=== PATIENT | female | born 1970 | race Caucasian/White ===

== ENCOUNTER 2020-05-08 09:31 | Day surgery (SDC) | payer BC, SELFPAY ==
[2020-05-07 09:29] VITALS: BMI 24.1
--- NOTE | 2020-05-07 10:58 | HO.ANESPROP2 ---
Documented by User: Cande Del Rio 05/07/20 10:59 HPI - Anesthesia Eval Consult details Narrative: 50yo for colonoscopy: screening PMFSH Past Medical History Medical History Anxiety Hx MRSA infection Seasonal allergies Surgical History Surgical History History of carpal tunnel release History of laparotomy Hx of colonoscopy Hx of hysterectomy Hx of tubal ligation Social History Social History Smoking Status: Never smoker Second Hand Smoke Exposure: No Use of substances other than those prescribed or required for medical reasons: Yes Substance Use Frequency: Occasionally Advance Directives: No Advance Directives Information Provided: No Meds Allergies Allergy/AdvReac Type Severity Reaction Status Date / Time Sulfa (Sulfonamide Allergy Intermediate RASH/ITCHING, Verified 05/08/20 09:44 Antibiotics) hives [SULFA (SULFONAMIDE ANTIBIOTICS)] Home Medications Medication Instructions Recorded Confirmed Type clonazepam 1 tab PO BID PRN 05/05/20 05/05/20 History escitalopram oxalate 1 tab PO DAILY 05/05/20 05/05/20 History fluconazole 1 tab PO DAILY 05/05/20 05/05/20 History Exam Exam Date and Time: May 07, 2020 1058 Height,Weight and Vital Signs: Height 5 ft 5 in Weight 65.771 kg Assessment and Plan Assessment Anesthesia Assessment: Chart Reviewed Documented by User: Lizz Santos 05/08/20 10:19 PMFSH Past Medical History Medical History Anxiety Hx MRSA infection Seasonal allergies Surgical History Surgical History History of carpal tunnel release History of laparotomy Hx of colonoscopy Hx of hysterectomy Hx of tubal ligation Social History Social History Smoking Status: Never smoker Second Hand Smoke Exposure: No Use of substances other than those prescribed or required for medical reasons: Yes Substance Use Frequency: Occasionally Advance Directives: No Advance Directives Information Provided: No Meds Allergies Allergy/AdvReac Type Severity Reaction Status Date / Time Sulfa (Sulfonamide Allergy Intermediate RASH/ITCHING, Verified 05/08/20 09:44 Antibiotics) hives [SULFA (SULFONAMIDE ANTIBIOTICS)] Home Medications Medication Instructions Recorded Confirmed Type clonazepam 1 tab PO BID PRN 05/05/20 05/05/20 History escitalopram oxalate 1 tab PO DAILY 05/05/20 05/05/20 History fluconazole 1 tab PO DAILY 05/05/20 05/05/20 History Exam Airway Mallampati Class: II TM Dist: >3cm Neck ROM: Full Assessment and Plan Assessment Anesthesia Assessment: Anesthesia Plan Discussed and Chart Reviewed Final Anesthetic Review NPO: Yes ASA Class: II Final Preanesthetic Review: No Changes in Pt Med Stat, Meds/Allgs Chart Reviewed, Consent Obtained/Reviewed and Anes Risks/Benef Reviewed Patient Risk: Low Procedure Risk: Low Assessment/Block/Sedation in SS: Assess/Block/Sedation-SS Anesthetic Plan Anesthetic Plan: MAC: Disposition: Standard PACU
[2020-05-08] VITALS (7 sets, daily range): BP systolic 88–120; BP diastolic 52–77; PULSE 73–98; RESP 16–20; TEMP 36.1–36.8; O2SAT 98–100
[2020-05-08] MEDS: Lactated Ringers 1,000 ML 100 ML IVCONT (10:05)
[2020-05-08] MEDS: Sodium Phosphate,Mono-Dibasic 133 ML ENEMA PR (10:06)
--- NOTE | 2020-05-08 10:36 | MHC.SHP ---
Pre-Procedural Eval Section B Chief Complaint: screening Details of Present Illness: screening Relevant Family History (Specify if Yes): Yes Relevant Social History: None Present Medications: see Short Stay Collaborative assessment Medical History: No relevant PMH History of Previous Operations: Relevant previous surgery/procedure and date(s) (see H&P no changes) Allergies: Allergies Allergy/AdvReac Type Severity Reaction Status Date / Time Sulfa (Sulfonamide Allergy Intermediate RASH/ITCHING, Verified 05/08/20 09:44 Antibiotics) hives [SULFA (SULFONAMIDE ANTIBIOTICS)] Review of Systems Sugical H&P ROS: Negative: Constitution, Cardiovascular, Respiratory, Neurological, Psychiatric, Hem-Onc, Allergic/Immunologic, Gastrointestinal, Genitourinary, Musculoskeletal, Integumentary, Endocrine and Eyes/Ears/Nose/Throat Exam Surgical H&P Exam: Normal: HEENT, Normal: Heart, Normal: Lungs, Normal: Extremities, Normal: Abdomen, Normal: Skin and Normal: Neurological Plan Diagnosis/Plan: Unchanged Patient has been examined and remains a candidate for the planned procedure
--- NOTE | 2020-05-08 11:07 | PM.OP ---
Brief Operative Note Date of procedure: 05/08/20 Pre-op diagnosis: screening Post-op diagnosis: same Procedure: colonosocpy Surgeon: Moi Hampton Anesthesia: MAC Estimated blood loss (mL): 0 Pathology: none sent Condition: stable Disposition: PACU
--- NOTE | 2020-05-08 11:44 | OP_ITS ---
SURGEON: Moi Hampton MD INDICATIONS: Colon cancer screening and family history of colon cancer. PREOPERATIVE DIAGNOSIS: POSTOPERATIVE DIAGNOSIS: PROCEDURE PERFORMED: Colonoscopy to the terminal ileum. ESTIMATED BLOOD LOSS: COMPLICATIONS: ANESTHESIA: ASSISTANTS: SPECIMENS: MEDICATIONS: Monitored anesthesia care. DESCRIPTION OF PROCEDURE: History and physical performed. The risks and benefits of the procedure were explained to the patient. Informed consent was obtained. The patient was placed in the left lateral decubitus position. A digital rectal exam was performed and was found to be normal. The Olympus pediatric video colonoscope was introduced into the rectum and advanced to the cecum without difficulty. The cecum was identified by transillumination, palpation, and identification of ileocecal valve. Examination was performed. The scope was removed. She tolerated the procedure well and was transferred to the recovery area in stable condition. FINDINGS: The terminal ileum was normal. The visualized colonic mucosa was normal. There was moderate amount of liquid and some semi-formed stool limiting the sensitivity examination for detection of small polyps. No polyps were identified. Retroflexed examination showed small internal hemorrhoids. IMPRESSION: Normal colonoscopy. RECOMMENDATIONS: 1. Follow up as needed. 2. Repeat colonoscopy should be done in 5 years because of family history. MD TEMITOPE Kline/ERIK / [id number]
== END 2020-05-08 12:28 | disposition home or self-care (01) ==
PROVIDERS: PCP Family Medicine; Visit Provider Internal Medicine Gastroenterology
PROC: 0DJD8ZZ Inspection of Lower Intestinal Tract, Via Natural or Artificial Opening Endoscopic (ICD-10-PCS; CPT 45378; principal; 2020-05-08 10:40)
DX: Z12.11 Encounter for screening for malignant neoplasm of colon (principal); Z80.0 Family history of malignant neoplasm of digestive organs; K64.8 Other hemorrhoids; J30.2 Other seasonal allergic rhinitis; F41.9 Anxiety disorder, unspecified; Z79.899 Other long term (current) drug therapy; Z85.42 Personal history of malignant neoplasm of other parts of uterus; Z88.2 Allergy status to sulfonamides; Z86.14 Personal history of Methicillin resistant Staphylococcus aureus infection
CPT/HCPCS: 45378

== ENCOUNTER 2025-03-21 07:02 | Day surgery (SDC) | payer BC, SELFPAY ==
--- OUTSIDE RECORDS SUMMARY | 2023-11-28 10:00 | XMS_ITS ---
Author Organization [facility] Address [address] [place] [address] Care Team Providers Care Shell Shop Supervisor Name Role Phone Teofilo SANTOYO, Hi Primary Care Provider Rolo Mckeon [phone] Encounters Encounter Location Date Provider Diagnosis [address] [address] 11/28/2023 Rolo Bassett Plan Of Treatment No Information Progress Notes * Anais JARADOB: (55 yo F)Acc No.[id number]:11/28/2023 Progress Notes Patient: Anais MAHONEY Provider: Luis F Bassett DPM :1970 A ge:53 Y S ex:Female Date:11/28/2023 Address:[address] [place] [address] [place] Pcp:Hi Red MD Subjective: * Chief Complaints: * * Medical History: Objective: * Vitals: Assessment: Plan: * Treatment: * Images: * The named appointment provid er may or may not be the originator of this progress note, and it is not deemed complete until electronically signed by the appointment provider. Sign off status: Pending * Provider: Luis F Bassett DPM Date: 11/28/2023 Generated for Vanna thapa/Tha/Gurwinderitting on: 02/20/2025 10:00 AM EDT
--- OUTSIDE RECORDS SUMMARY | 2025-02-20 10:00 | XMS_ITS | Encounter Summary ---
Author Organization [facility] Address [address] [place] [address] [place] [phone] Phone Care Team Providers Care Paper Handler Name Role Phone Hi Red MD Primary Care Provider + Holli London MD Unavailable [phone] Yudy Owens MD Unavailable [phone] Jayda Herrera AUTO GARAGE MECHANIC Unavailable [phone] Lori Ahn AUTO GARAGE MECHANIC Unavailable [phone] Encounter Details Date Type Department Care Team (Late st Contact Info) Description 09/15/2021 Procedure Pass [facility] Imaging Department, [facility], [place] [address], [address] [place] [address] Social History Tobacco Use Types Packs/Day Years Used Date Smoking Tobacco: Never Smokeless Tobacco: Never Alcohol Use Standard Drinks/Week Comments Yes 0 (1 standard drink = 0.6 oz pur e alcohol) once a month, glass of wine Comments No Sex and Gender Information Value Date Recorded Sex Assigned at Female 07/23/2019 12:59 PM EST Legal Sex Female 10:32 PM EDT Gender Identity Female 07/23/2019 12:59 PM EST Sexual Orientation Straight 07/23/2019 12 :59 PM EST documented as of this encounter Plan of Treatment Upcoming Encounters Date Type Department Care Team (Late st Contact Info) Description 11/19/2024 Procedure Pass [facility] Imaging Department, [facility] [place] [address] [facility], [address] [place] [address] 11/19/2024 Procedure Pass [facility] Imaging Department, [facility] [place] [address] [facility], [address] [place] [address] 09/02/2025 1:00 PM EST Appointment [facility] Imaging Department, [facility] [place] [address] [facility], [address] [place] [address] Yudy Owens MD [address] [place] [phone] [email or web address] 09/02/2025 4:30 PM EST Office [facility] [address] [facility], [address]th [place] [address] Yudy Owens MD [address] [place] [phone] [email or web address] documented as of this encounter Visit Diagnoses Not on filedocumented in this encounter Care Teams Paper Handler Relationship Specialty Start Date End Date Hi Red MD [address] [place] [address] PCP - General Family Medicine 05/28/19 Holli London MD [address] [place] [address] 4B_OB/[employer] [place] [address] Referring Physician Obstetrics and Gynecology 05/28/19 Yudy Owens MD [address] [place] [phone] [email or web address] Primary Oncologist Medical Oncology 05/30/19 Jayda Herrera, [facility] [address] [place] [address] [email or web address] Configuration Specialist Oncology 06/24/19 Lori Ahn, [address] [address] [email or web address] Configuration Specialist 08/06/19 documented as of this encounter Additional Source Comments The information contained in this document represents components of the legal health record. It is not the complete legal health record.[facility]
--- OUTSIDE RECORDS SUMMARY | 2025-02-20 10:00 | XMS_ITS | Clinical Summary ---
Author Organization [facility] Address [address] [id number] Care Team Providers Care Market Research Intern Name Role Phone Unavailable Primary Care Provider Unavailabl e Immunizations Immunization Administration Dates Next Due COVID-19, mRNA (Pfizer Pre F all 2022) Monovalent, 30 mcg/0.3 ml 05/21/2021,10/30/2020,10/09/2020 Hep B - 05/02/2007,03/29/2007 Influenza,injectable,quad,Prsrv Fr 05/21/2020 Social History Tobacco Use Types Packs/Day Years Used Date Smoking Tobacco: Never Assessed Intimate Partner Violence Answer Date R ecorded Fear of Current or Ex-Partner Not on file Emotionally Abused Not on file 03/09/2023 Physically Abused Not on file 03/09/2023 Sexually Abused Not on file 03/09/2023 Feel Safe at Home Not on file 03/09/2023 Comments Unknown Sex and Gender Information Value Date Recorded Sex Assigned at Not on file Legal Sex Female 12:41 PM EDT Gender Identity Not on file Sexual Orientation Not on file Plan of Treatment Health Maintenance Due Date Last Done Comments Hepatitis C Screening 1970 Pap Smear 1984 DTaP/Tdap/Td (1 - Tdap) 12/31/1985 Hep B (3 of 3 - 19+ 3-dose series) 09/27/2007 05/02/2007, 03/29/2007 Mammogram/Breast Imaging 2008 Colon Cancer Screening 12/31/2012 Pneumococcal 50+ years (1 of 1 - PCV) 12/31/2017 Zoster (Shingrix) (1 of 2) 12/31/2017 COVID-19 Vaccine (4 - 2023-2 5 season) 2024 05/21/2021, 10/30/2020, 10/09/2020 Influenza (#1) 2025 05/21/2020 HPV Vaccine (No Doses Required) Completed Hep A Aged Out No longer eligi ble based on patient's age to complete this topic Hib Aged Out No longer eligi ble based on patient's age to complete this topic Meningococcal ACWY Aged Out No longer eligible based on patient's age to complete this topic
--- OUTSIDE RECORDS SUMMARY | 2025-02-20 10:00 | XMS_ITS | Patient Health Record ---
Author Organization [facility] Address [address] [place] [address] Care Team Providers Care Dog Trainer Name Role Phone Hi Red Primary Care Provider Unavaila ble Moi Hampton Jr Unavailable Moi Hampton Unavailable Unavailable Allergies Allergen (clinical drug ingredient) Drug/Non Drug Allergy documented on EMR Reaction Allergy Type Onset Date Status Sulfa Unknown Drug Allergy Active seasonal,allergies (uncoded) Unknown Allergy Active Reason For Referral Referring Provider First Name Hi Referring Provider Last Name Teofilo Referred Organization [facility] Referred Provider Moi Hampton Jr Referred Address [address] [facility],[place], [place],[address], Referred Provider Specialty Gastroentero logy General Notes Cande Rizzo 2024 03:08:23 PM >requested an o blue referral from Dr. Red's office for visit with Dr. Hampton on [phone] Referral Priority Routine Medications Medication SIG (Take, Route, Fr equency, Duration) Notes Start Date End Date Status Golytely 236 GM 4,000 ML Orally for 1 days 025 Active ZyrTEC Allergy Activ e Famotidine 20 MG 1 tablet at bedtime as needed Orally Once a day Active clonazePAM Active Vitamin D Active Vitamin B 12 Active Immunizations Vaccine Route Administration Date Status Comme nts Influenza Unknown 03/17/2019 Administered Influenza Unknown 05/07/2024 Administered Problems Problem Type SNOMED Code ICD Code Onset Dates Problem Status W/U Status Risk Notes Problem 325305463 Colon cancer screening (Z12.11) Active confirmed Problem 473099627 Encounter for other preprocedural examination (Z01.818) Active confirmed Problem IBS (irritable bowel syndrome) (K58.9) Active confirmed Problem Gastroesophageal reflux disease (239785103) GERD (gastroesophagea l reflux disease) (K21.9) Active confirmed Vital Signs Temperature 97.5 degrees Fahrenheit 01/13/2025 Blood pressure diastolic 01 mm Hg 01/13/2025 Height 65 in 01/13/2025 Blood pressure systolic 001 mm Hg 01/13/2025 Weight 157.2 lbs 01/13/2025 BMI 26.16 kg/m2 01/13/2025 Encounters Encounter Location Date Provider Diagnosis [facility] [address] [facility] [address] [place] [address] 01/13/2025 Moi Hampton Jr Colon cancer screening Z12.11 ; GERD (gastroesophageal reflux disease) K21.9 and IBS (irritable bowel syndrome) K58.9 Assessments Encounter Date Diagnosis (ICD Code) Assessment Notes Treatment Notes Treatment Clinical Notes Section Notes 01/13/2025 Colon cancer screening (ICD-10 - Z12.11) She appears to have gastroesophageal reflux disease. We discussed the pathophysiology of this today. We discussed diet, lifestyle modifications, and treatment with proton pump inhibitors versus H2 blockers. She will continue her present regimen. Endoscopy will be scheduled. She understands risks and benefits and agrees to proceed. Her constipation symptoms appear consistent with irritable bowel syndrome with constipation predominance. We discussed this today. We have recommended a trial of Metamucil and MiraLAX and discussed how to titrate these medications today. She is due for colorectal cancer screening. This will be arranged. She understands risks and benefits and agrees to proceed. She requested a polyethylene glycol four liter prep and this will be arranged. 01/13/2025 GERD (gastroesopha geal reflux disease) (ICD-10 - K21.9) She appears to have gastroesophageal reflux disease. We discussed the pathophysiology of this today. We discussed diet, lifestyle modifications, and treatment with proton pump inhibitors versus H2 blockers. She will continue her present regimen. Endoscopy will be scheduled. She understands risks and benefits and agrees to proceed. Her constipation symptoms appear consistent with irritable bowel syndrome with constipation predominance. We discussed this today. We have recommended a trial of Metamucil and MiraLAX and discussed how to titrate these medications today. She is due for colorectal cancer screening. This will be arranged. She understands risks and benefits and agrees to proceed. She requested a polyethylene glycol four liter prep and this will be arranged. 01/13/2025 IBS (irritable bowel syndrome) (ICD-10 - K58.9) She appears to have gastroesophageal reflux disease. We discussed the pathophysiology of this today. We discussed diet, lifestyle modifications, and treatment with proton pump inhibitors versus H2 blockers. She will continue her present regimen. Endoscopy will be scheduled. She understands risks and benefits and agrees to proceed. Her constipation symptoms appear consistent with irritable bowel syndrome with constipation predominance. We discussed this today. We have recommended a trial of Metamucil and MiraLAX and discussed how to titrate these medications today. She is due for colorectal cancer screening. This will be arranged. She understands risks and benefits and agrees to proceed. She requested a polyethylene glycol four liter prep and this will be arranged. Plan Of Treatment Future Test Test Name Order Date COLONOSCOPY 04/10/2014 COLONOSCOPY 03/05/2020 UPPER GI ENDOSCOPY 01/13/2025 COLONOSCOPY 01/13/2025 Next Appt Details Provider Name:Moi Berta dixon , 03/21/2025 08:20:00 AM, [address] [place] [address] , [place], [place], [phone], Insurance Providers Payer Name Payer Address Payer Phone Subscriber Number Group Number Insured Name Patient Relationship to Insured Coverage Start Date Coverage End Date [facility] [employer] CLAIM[employer] [address] [place] [address] [id number] BIANCA HAMMOND Self - patient is the insured Medical (General) History Medical History History ICD Code colonoscopy 08/01/14, negative for polyps , five-year followup recommended. endometrial stromal carcinoma Surgical History Surgery Date(Month/Year) elbow surgery carpal tunnel laparotomy partial hysterectomy tubal ligation section X2
[2025-03-19 12:09] VITALS: BMI 26.2
--- NOTE | 2025-03-20 08:45 | HO.ANESPROP2 ---
Documented by User: Cande Del Rio NP 03/20/25 08:45 HPI - Anesthesia Eval Consult details Narrative: 55yo F for Upper Endoscopy and Colonoscopy [facility] Past Medical History Medical History GERD (gastroesophageal reflux disease) Constipation IBS (irritable colon syndrome) Hx MRSA infection Anxiety Seasonal allergies Surgical History Surgical History H/O knee surgery Hx of elbow surgery History of Hx of colonoscopy (04/2020) History of laparotomy History of carpal tunnel release Hx of tubal ligation Hx of hysterectomy Social History Social History Patient Tobacco Use Status: Never used Tobacco Second Hand Smoke Exposure: No Use of substances other than those prescribed or required for medical reasons: No Are you DNR?: No Advance Directives: No Advance Directives Information Provided: Yes Patient : No : No Poor oral hygiene: No Meds Allergies Allergy/AdvReac Type Severity Reaction Status Date / Time Sulfa (Sulfonamide Allergy Intermediate RASH/ITCHING, Verified 05/08/20 09:44 Antibiotics) (SULFA hives (SULFONAMIDE ANTIBIOTICS)) Home Medications ?Medication ?Instructions ?Recorded ?Confirmed ?Last Taken ?Type clonazepam 0.5 mg tablet 1 tab PO BID PRN anxiety 05/05/20 03/21/25 Unknown History cetirizine 10 mg tablet (Zyrtec) 10 mg PO DAILY 03/19/25 03/21/25 03/21/25 History famotidine 20 mg tablet 20 mg PO BEDTIME PRN Acid Reflux 03/19/25 03/21/25 Unknown History Exam Height,Weight and Vital Signs: Height 5 ft 5 in Weight 71.305 kg Assessment and Plan Assessment Anesthesia Assessment: Chart Reviewed Documented by User: Bekah Nair MD 03/21/25 08:08 [facility] Past Medical History Medical History GERD (gastroesophageal reflux disease) Constipation IBS (irritable colon syndrome) Hx MRSA infection Anxiety Seasonal allergies Surgical History Surgical History H/O knee surgery Hx of elbow surgery History of Hx of colonoscopy (04/2020) History of laparotomy History of carpal tunnel release Hx of tubal ligation Hx of hysterectomy History of Problems with Anesthesia: No Social History Social History Patient Tobacco Use Status: Never used Tobacco Second Hand Smoke Exposure: No Use of substances other than those prescribed or required for medical reasons: No Are you DNR?: No Advance Directives: No Advance Directives Information Provided: Yes Patient : No : No Poor oral hygiene: No Meds Allergies Allergy/AdvReac Type Severity Reaction Status Date / Time Sulfa (Sulfonamide Allergy Intermediate RASH/ITCHING, Verified 05/08/20 09:44 Antibiotics) (SULFA hives (SULFONAMIDE ANTIBIOTICS)) Home Medications ?Medication ?Instructions ?Recorded ?Confirmed ?Last Taken ?Type clonazepam 0.5 mg tablet 1 tab PO BID PRN anxiety 05/05/20 03/21/25 Unknown History cetirizine 10 mg tablet (Zyrtec) 10 mg PO DAILY 03/19/25 03/21/25 03/21/25 History famotidine 20 mg tablet 20 mg PO BEDTIME PRN Acid Reflux 03/19/25 03/21/25 Unknown History Exam Airway Mallampati Class: II TM Dist: >3cm Neck ROM: Full Heart: RRR Lungs: CTA Assessment and Plan Assessment Anesthesia Assessment: Anesthesia Plan Discussed Final Anesthetic Review History of Problems with Anesthesia: No NPO: Yes ASA Class: II Final Preanesthetic Review: Meds/Allgs Chart Reviewed, Consent Obtained/Reviewed and Anes Risks/Benef Reviewed Patient Risk: Low Procedure Risk: Intermediate Anesthetic Plan Anesthetic Plan: MAC: Disposition: Standard PACU
[2025-03-21 07:19] VITALS: BMI 26.1
[2025-03-21 07:35] VITALS: BP 119/75; PULSE 66; RESP 16; TEMP 36.9; O2SAT 97
[2025-03-21] MEDS: Lactated Ringers 1,000 ML 100 ML IVCONT (07:44)
--- NOTE | 2025-03-21 08:13 | MHC.SHP ---
Pre-Procedural Eval Section A - 24 Hr Update-Section A only Date of Service: 03/21/25 Section B - Complete if H&P > 30 days Chief Complaint: gerd,screening Details of Present Illness: see H&P no changes Relevant Family History (Specify if Yes): No Relevant Social History: None Present Medications: see Short Stay Collaborative assessment Medical History: No relevant PMH History of Previous Operations: No relevant previous surgery Allergies: Allergies Allergy/AdvReac Type Severity Reaction Status Date / Time Sulfa (Sulfonamide Allergy Intermediate RASH/ITCHING, Verified 05/08/20 09:44 Antibiotics) (SULFA hives (SULFONAMIDE ANTIBIOTICS)) Review of Systems Sugical H&P ROS: Negative: Constitution, Cardiovascular, Respiratory, Neurological, Psychiatric, Hem-Onc, Allergic/Immunologic, Gastrointestinal, Genitourinary, Musculoskeletal, Integumentary, Endocrine and Eyes/Ears/Nose/Throat Exam Surgical H&P Exam: Normal: HEENT, Normal: Heart, Normal: Lungs, Normal: Extremities, Normal: Abdomen, Normal: Skin and Normal: Neurological Plan Diagnosis/Plan: Unchanged I have reviewed the history and physical and performed a pertinent physical examination on my patient. No changes have occurred unless specified. Time Spent With Patient Time: Total time managing care of this patient today ____ minutes.
[2025-03-21 08:57] VITALS: BP 110/70; PULSE 77; RESP 18; TEMP 36.1; O2SAT 99
[2025-03-21 09:12] VITALS: BP 122/77; PULSE 63; RESP 16; TEMP 36.6; O2SAT 98
--- NOTE | 2025-03-21 10:54 | OP_ITS ---
DATE OF SERVICE: 03/21/2025 SURGEON: Moi Hampton MD INDICATIONS: Gastroesophageal reflux disease and family history of colon cancer. PREOPERATIVE DIAGNOSIS: POSTOPERATIVE DIAGNOSIS: PROCEDURE PERFORMED: Upper endoscopy with biopsy, colonoscopy to the terminal ileum. ESTIMATED BLOOD LOSS: COMPLICATIONS: ANESTHESIA: Medications, monitored anesthesia care. ASSISTANTS: SPECIMENS: DESCRIPTION OF PROCEDURE: A history and physical were performed. The risks and benefits of the procedure explained to the patient. Informed consent was obtained. The patient was placed in the left lateral decubitus position. The Olympus video gastroscope was introduced into the esophagus, stomach, and duodenum. Examination was performed and the scope was removed. She was repositioned for colonoscopy. A digital rectal exam was performed and was found to be normal. The Olympus pediatric video colonoscope was introduced into the rectum and advanced to the cecum. The cecum was identified by transillumination, palpation, and identification of ileocecal valve. Examination was performed and the scope was removed. She tolerated the procedure well and was returned to recovery in stable condition. FINDINGS: Upper endoscopy: 1. Esophagus: The esophagus was normal. There was no esophagitis. 2. Stomach: Stomach showed no evidence of masses, ulcers, or polyps. 3. Duodenum: The bulb and 2nd portion were normal. Biopsies were obtained from the EG junction, antrum, and duodenum. Colonoscopy: The terminal ileum was normal. Visualized colonic mucosa was normal. The quality of the prep was good. No polyps were identified. Retroflexed examination showed small internal hemorrhoids. IMPRESSION: 1. Gastroesophageal reflux disease. 2. Normal colonoscopy. RECOMMENDATION: Follow up the biopsy results. Repeat colonoscopy is recommended in 5 years because of family history. MD TEMITOPE Kline/ROMEL / [id number]
== END 2025-03-21 09:35 | disposition home or self-care (01) ==
PROVIDERS: PCP Family Medicine; Visit Provider Internal Medicine Gastroenterology
PROC: (CPT 45378; principal; 2025-03-21 08:20)
DX: Z12.11 Encounter for screening for malignant neoplasm of colon (principal); Z80.0 Family history of malignant neoplasm of digestive organs; K64.8 Other hemorrhoids; K58.9 Irritable bowel syndrome, unspecified; K59.00 Constipation, unspecified; K21.9 Gastro-esophageal reflux disease without esophagitis; K29.50 Unspecified chronic gastritis without bleeding; R63.4 Abnormal weight loss; Z68.26 Body mass index [BMI] 26.0-26.9, adult; Z85.42 Personal history of malignant neoplasm of other parts of uterus; Z90.711 Acquired absence of uterus with remaining cervical stump; J30.2 Other seasonal allergic rhinitis; Z79.899 Other long term (current) drug therapy; Z88.2 Allergy status to sulfonamides; Z98.890 Other specified postprocedural states
CPT/HCPCS: 45378; 43239; 88305; 88313; 88342; J2003; J2704